=== PATIENT | male | born 1990 | race Caucasian/White ===

== ENCOUNTER 2016-09-01 14:22 | Emergency (ER) | payer BC ==
[2016-09-01] MEDS ORDERED: IBUPROFEN 800 MG TABLET PO ONE (14:27)
--- NOTE | 2016-09-01 14:28 | ER Document Report ---
ED Medical Screen (RME) - General Stated Complaint: BACK PAIN Mode of Arrival: Ambulatory Information source: Patient Notes: Patient reports a history of chronic back pain with a ruptured L4-L5. No new injury. No urinary symptoms. Patient points of low back pain that radiates to right hip area. Patient states he played football yesterday which aggravated his pain. I have greeted and performed a rapid initial assessment of this patient. A comprehensive ED assessment and evaluation of the patient, analysis of test results and completion of the medical decision making process will be conducted by additional ED providers. Physical Exam - Back Back: Tender - Right lower back
[2016-09-01 14:30] VITALS: BP 133/90
--- NOTE | 2016-09-01 17:08 | ER Document Report ---
HPI - HPI Patient complains to provider of: right low back pain with sciatica Onset: Yesterday Onset/Duration: Gradual Quality of pain: Burning, Throbbing Pain Level: 4 Context: 26-year-old male complaining of right low back pain that radiates into his right buttocks and down to his right ankle which is a burning pain. History of intermittent back pain over the past 2 years but this is not flared recently until he played football yesterday. No saddle anesthesia. No fever. No IV drug use. Her 800 mg given in triage has helped. Associated Symptoms: None Exacerbated by: Walking Relieved by: Other - Motrin has helped Similar symptoms previously: Yes Recently seen / treated by doctor: No - ROS ROS below otherwise negative: Yes Systems Reviewed and Negative: Yes All other systems reviewed and negative - DERM Skin Color: Normal Past Medical History - General Information source: Patient - Social History Smoking Status: Never Smoker Chew tobacco use (# tins/day): No Frequency of alcohol use: None Drug Abuse: None Lives with: Spouse/Significant other Family History: Reviewed & Not Pertinent Patient has suicidal ideation: No Patient has homicidal ideation: No Renal/ Medical History: Denies: Hx Peritoneal Dialysis Musculoskeltal Medical History: Reports Other - Back pain with nonsurgical MRIs Surgical Hx: Negative Vertical Provider Document - CONSTITUTIONAL Agree With Documented VS: Yes Exam Limitations: No Limitations - INFECTION CONTROL TRAVEL OUTSIDE OF THE [place] IN LAST 30 DAYS: No - HEENT HEENT: Normocephalic - NECK Neck: Supple - RESPIRATORY O2 Sat by Pulse Oximetry: 99 - BACK Back: Normal Inspection Notes: Tender right low sacral iliac joint into the right middle buttocks, no rash or erythema - MUSCULOSKELETAL/EXTREMETIES Musculoskeletal/Extremeties: MAEW, FROM - NEURO Level of Consciousness: Awake, Alert Motor/Sensory: No Motor Deficit, No Sensory Deficit Deep Tendon Reflexes: 2+ - ankle and patellar - DERM Integumentary: Warm, Dry, No Rash Course - Vital Signs Vital signs: Temp Pulse Resp BP Pulse Ox 97.8 F 89 16 133/90 H 99 09/01/16 14:28 09/01/16 14:28 09/01/16 14:28 09/01/16 14:28 09/01/16 14:28 Discharge - Discharge Clinical Impression: Low back pain with sciatica Qualifiers: Chronicity: acute Back pain laterality: right Sciatica laterality: sciatica of right side Qualified Code(s): M54.41 - Lumbago with sciatica, right side Condition: Good Disposition: HOME, SELF-CARE Instructions: Low Back Pain ([facility]), Ice Packs ([facility]), Warm Packs ([facility]), Oral Narcotic Medication ([facility]), Muscle Relaxers ([facility]), Anti-Inflammatory Medication ( [facility]) Additional Instructions: warm compress or ice whichever feels better gentle stretching to er if worse Prescriptions: Ibuprofen [Motrin 800 mg Tablet] 800 mg PO Q8HP PRN #30 tablet PRN Reason: Cyclobenzaprine HCl [Flexeril 10 Mg Tablet] 10 mg PO TIDP PRN #20 tablet PRN Reason: Oxycodone HCl/Acetaminophen [Percocet 5-325 mg Tablet] 1 - 2 tab PO ASDIR PRN # 15 tablet PRN Reason: Forms: Return to Work
== END 2016-09-01 17:13 | disposition home or self-care (01) ==
LOC: ER 14:22
DX: M54.41 Lumbago with sciatica, right side (principal)
CPT/HCPCS: 99283

== ENCOUNTER 2019-07-29 07:19 | Emergency (ER) | payer SELFPAY ==
[2019-07-29 07:34] VITALS: BP 125/88
[2019-07-29 08:46] LABS: ABSOLUTE EOSINOPHILS # (AUTO) 0.1 10^3/uL (0.0-0.6); ABSOLUTE LYMPHOCYTES (AUTO) 1.1 10^3/uL (0.5-4.7); ABSOLUTE MONOCYTES (AUTO) 0.4 10^3/uL (0.1-1.4); ABSOLUTE NEUT (AUTO) 3.9 10^3/uL (1.7-8.2); BASOPHILS % (AUTO) 0.5 % (0-2); EOSINOPHILS % (AUTO) 2.2 % (0-6); HEMATOCRIT 43.2 % (37.9-51.0); HEMOGLOBIN 15.1 g/dL (13.5-17.0); LYMPHOCYTES % (AUTO) 20.3 % (13-45); MEAN CORPUSCULAR HEMOGLOBIN 28.5 pg (27.0-33.4); MEAN CORPUSCULAR VOLUME 82 fl (80-97); MONOCYTES % (AUTO) 7.8 % (3-13); PLATELET COUNT 246 10^3/uL (150-450); RED CELL DISTRIBUTION WIDTH 13.5 % (11.5-14.0); SEGMENTED NEUTROPHILS % (AUTO) 69.2 % (42-78); TOTAL CELLS COUNTED % (AUTO) 100 %; WHITE BLOOD COUNT 5.6 10^3/uL (4.0-10.5)
--- NOTE | 2019-07-29 08:50 | RADIOLOGY REPORT (SQ) ---
EXAM DESCRIPTION: FOOT LEFT COMPLETE COMPLETED DATE/TIME: 07/29/2019 8:20 am REASON FOR STUDY: foot pain COMPARISON: None. NUMBER OF VIEWS: Three views. TECHNIQUE: AP, lateral and oblique radiographic images acquired of the left foot. LIMITATIONS: None. FINDINGS: MINERALIZATION: Normal. BONES: No acute fracture or dislocation. No worrisome bone lesions. Small os perineum trigonal proc ess. JOINTS: No effusions. SOFT TISSUES: Mild forefoot soft tissue swelling. No radiopaque foreign body. OTHER: No other significant finding. IMPRESSION: No evidence of acute bony abnormality. Mild forefoot soft tissue swelling. Sign or poor TECHNICAL DOCUMENTATION: JOB ID: [id number] [employer]- All Rights Reserved Reading location - IP/workstation name: [email or web address]
[2019-07-29] MEDS ORDERED: KETOROLAC TROMETHAMINE INJ/PF 30 MG/1 ML SDV IM ONE (10:20)
--- NOTE | 2019-07-29 10:20 | ER Document Report ---
HPI - HPI Time Seen by Provider: 07/29/19 09:41 Pain Level: 5 Context: Patient is a 29-year-old male who presents emergency department with a chief complaint of left foot pain. Patient reports he was playing golf in July 16 and the next day noticed that he was having left foot pain at the base of his great toe. Patient reports redness and swelling to the area. Patient reports this is increasingly gotten worse. Patient reports he did not have any injury. Patient denies a history of gout. - REPRODUCTIVE Reproductive: DENIES: : - DERM Skin Color: Erythema Past Medical History - General Information source: Patient - Social History Smoking Status: Never Smoker Frequency of alcohol use: None Drug Abuse: None Lives with: Family Family History: Reviewed & Not Pertinent Patient has suicidal ideation: No Patient has homicidal ideation: No - Past Medical History Cardiac Medical History: Reports: None Pulmonary Medical History: Reports: None EENT Medical History: Reports: None Neurological Medical History: Reports: None Endocrine Medical History: Reports: None Renal/ Medical History: Reports: None. Denies: Hx Peritoneal Dialysis Malignancy Medical History: Reports None GI Medical History: Reports: None Musculoskeletal Medical History: Reports None Skin Medical History: Reports None Psychiatric Medical History: Reports: None Traumatic Medical History: Reports: None Infectious Medical History: Reports: None Surgical Hx: Negative - Immunizations Hx Diphtheria, Pertussis, Tetanus Vaccination: Yes Vertical Provider Document - CONSTITUTIONAL Agree With Documented VS: Yes Exam Limitations: No Limitations General Appearance: No Apparent Distress - INFECTION CONTROL TRAVEL OUTSIDE OF THE [place] IN LAST 30 DAYS: No - HEENT HEENT: Atraumatic, Normal ENT Exam, Normocephalic, PERRLA - NECK Neck: Normal Inspection - RESPIRATORY Respiratory: Breath Sounds Normal, No Respiratory Distress - CARDIOVASCULAR Cardiovascular: Regular Rate, Regular Rhythm - GI/ABDOMEN Gastrointestinal: Abdomen Soft, Abdomen Non-Tender, Normal Bowel Sounds - MUSCULOSKELETAL/EXTREMETIES Musculoskeletal/Extremeties: FROM, Tender, Edema Notes: Patient has erythema and tenderness noted to the base of the first great toe on the left foot. There is no obvious deformity. The area is extremely tender to touch. Patient has a strong +2 dorsalis pedis and posterior tibial pulse with palpation. No ecchymosis. - NEURO Level of Consciousness: Awake, Alert, Appropriate - DERM Integumentary: Warm, Dry, No Rash Course - Re-evaluation Re-evalutation: 07/29/19 10:46 Symptoms are consistent with gout. Will give patient anti-inflammatory injection prior to discharge. We will place the patient on steroids as well as colchicine. I did discuss the importance of taking both medications as prescribed only. Patient verbalizes understanding. Patient denies any significant past medical history to include kidney disease or diabetes. - Vital Signs Vital signs: Temp Pulse Resp BP Pulse Ox 97.7 F 82 18 125/88 H 96 07/29/19 07:33 07/29/19 07:33 07/29/19 07:33 07/29/19 07:33 07/29/19 07:33 - Laboratory Result Diagrams: 07/29/19 08:29 Laboratory results interpreted by me: 07/29/19 08:29 Valproic Acid < 10.0 L - Diagnostic Test Radiology reviewed: Reports reviewed Radiology results interpreted by me: 07/29/19 10:46 Foot X-Ray 07/29/19 00:00 IMPRESSION: No evidence of acute bony abnormality. Mild forefoot soft tissue swelling. Sign or poor Discharge - Discharge Clinical Impression: Left foot pain Gout Qualifiers: Gout site: foot Gout etiology: unspecified cause Chronicity: acute Laterality: left Qualified Code(s): M10.9 - Gout, unspecified Condition: Stable Disposition: HOME, SELF-CARE Additional Instructions: Today was seen in the emergency department for left foot pain. Your symptoms are consistent with gout. It is unsure what is causing this. The first treatment is decrease inflammation. We have given you 2 medications for this 1 is a steroid. Take the steroids as prescribed. You have also been given a prescription for colchicine which is specifically used for gout. Gout You have been diagnosed as having gout. Gout is a problem caused by an excess of uric acid, a natural chemical found in the body. The cause of this disease is unknown. Gout arthritis occurs when crystals of uric acid form in the joints. The big toe is the most common joint involved, but any joint can become affected. Persons with gout may also form uric acid kidney stones, resulting in flank pain and blood in the urine. Nodules of uric acid may form under the skin. The first step of treatment is to decrease the inflammation in the joint with antiinflammatory medication. Medication to lower the uric acid level in the blood may then be prescribed. This medication should be taken regularly, as any sudden change in dosage may provoke an attack of gout. Some foods, such as red meat, can provoke an attack in some gout sufferers. Call the doctor if new symptoms arise, or if you do not improve. Gout Diet Changing your diet can decrease the uric acid in your blood. High levels of uric acid cause gouty arthritis and uric acid kidney stones. If you have gout, you should avoid meats that are high in purine. Meat products to avoid include liver, kidneys, and brains. In general, poultry is better than red meats. Seafoods to avoid include anchovies, sardines, bajwa, mackerel, and scallops. In addition to limiting purine-rich foods, people with gout should limit protein intake to 10-15% of total calories. Carbohydrate intake should be around 50% of total daily calories. Limit fat intake to 30% of total daily calories. Cholesterol intake should be less than 300 mg/day. Maintain or achieve a healthy body weight. Weight loss should be gradual. Rapid weight loss can actually increase uric acid levels temporarily. Alcohol, especially beer, should be avoided. Get plenty of fluids. This dilutes urinary uric acid, and helps prevent uric acid kidney stones. Drink eight to twelve cups of water daily. Prescriptions: Colchicine [Colchicine 0.6 mg Tablet] 0.6 mg PO ASDIR PRN #9 tablet PRN Reason: Prednisone [Deltasone 10 mg Tablet] 10 mg PO ASDIR PRN #21 tablet PRN Reason: Forms: Return to Work
== END 2019-07-29 10:47 | disposition home or self-care (01) ==
LOC: ER 07:19
DX: M79.672 Pain in left foot (principal); M10.9 Gout, unspecified
CPT/HCPCS: 99283; 96372; 36415; 85025; 80164; 73630; J1885